=== PATIENT | male | born 1980 | race Two or more races ===

== ENCOUNTER 2019-03-25 22:51 | Emergency (ER) | payer SELFPAY ==
[2019-03-25 22:58] VITALS: O2SAT 99
--- NOTE | 2019-03-26 00:20 | ED PDOC ---
HPI: Psych/Substance Abuse Time Seen by Provider: 03/25/19 23:30 Chief Complaint (Nursing): Alcohol Ingestion Chief Complaint (Provider): Alcohol Ingestion ED Caveat: Intoxicated History Per: EMS History/Exam Limitations: intoxication Associated Symptoms: Anger, Agitation Additional Complaint(s): 39 years old male brought in by EMS and PD for alcohol intoxication and aggressive behavior. In the ER, patient is very uncooperative, not understanding directions and admitting to being intoxicated. Unable to provide reliable history from patient. PMD: None provided Past Medical History Reviewed: Historical Data, Nursing Documentation, Vital Signs Vital Signs: Last Vital Signs Temp 98.9 F 03/25/19 22:55 Pulse 96 H 03/25/19 22:55 Resp 17 03/25/19 22:55 BP 137/89 03/25/19 22:55 Pulse Ox 99 03/25/19 22:55 Primary Care Provider: FAMILY PROVIDER,NO - Medical History Other PMH: Unknown - Family History Family History: States: Unknown Family Hx - Social History Alcohol: Social - Allergies Allergies/Adverse Reactions: Allergies Allergy/AdvReac Type Severity Reaction Status Date / Time No Known Allergies Allergy Verified 03/25/19 22:58 Review of Systems Review Of Systems: ROS cannot be obtained secondary to pt's inabilty to answer questions. Physical Exam - Reviewed Nursing Documentation Reviewed: Yes Vital Signs Reviewed: Yes - Physical Exam Appears: Positive for: No Acute Distress (Agitated and angry) Head Exam: Positive for: ATRAUMATIC, NORMOCEPHALIC Skin: Positive for: Warm, Dry Eye Exam: Positive for: Conjunctival injection Neck: Positive for: Painless ROM, Supple Cardiovascular/Chest: Positive for: Regular Rate, Rhythm. Negative for: Murmur Respiratory: Positive for: Normal Breath Sounds. Negative for: Respiratory Distress Gastrointestinal/Abdominal: Positive for: Soft. Negative for: Tenderness Back: Positive for: Normal Inspection. Negative for: Decreased ROM Extremity: Positive for: Normal ROM. Negative for: Deformity Lymphatic: Negative for: Adenopathy Neurological/Psych: Positive for: Gait (Unsteady), Other (Slurred speech). Negative for: Motor/Sensory Deficits - ECG O2 Sat by Pulse Oximetry: 99 (RA) Pulse Ox Interpretation: Normal Medical Decision Making Medical Decision Making: Time: 2330 Initial impression: alcohol intoxication Initial plan: --On arrival, patient extremely agitated, unable to redirect and trying to ambulate despite unsteady gait --Required short term restrain for patient's safety [address] Carlos, pending sobriety. ---- Scribe Attestation: Documented by Kortney Black, acting as a scribe for Gwen Izaguirre MD. Provider Scribe Attestation: All medical record entries made by the Scribe were at my direction and personally dictated by me. I have reviewed the chart and agree that the record accurately reflects my personal performance of the history, physical exam, medical decision making, and the department course for this patient. I have also personally directed, reviewed, and agree with the discharge instructions and disposition. Disposition - Clinical Impression Clinical Impression: Alcohol abuse with intoxication - Patient ED Disposition Is Patient to be Admitted: Transfer of Care - Disposition Disposition: Transfer of Care Disposition Time: 00:16 Condition: STABLE Instructions: Alcohol Abuse and Alcoholism (DC) Forms: [employer] (Ukrainian) Patient Signed Over To: Tirso Carlos (pending sobriety)
--- NOTE | 2019-03-26 01:02 | ED PDOC ---
- ECG O2 Sat by Pulse Oximetry: 99 (RA) Pulse Ox Interpretation: Normal Medical Decision Making Medical Decision Makin Patient endorsed by Dr. Izaguirre, pending sobriety. 0103 Patient is clinically sober, stable for discharge. Scribe Attestation: Documented by Kortney Black, acting as a scribe for Tirso Carlos MD. Provider Scribe Attestation: All medical record entries made by the Scribe were at my direction and personally dictated by me. I have reviewed the chart and agree that the record accurately reflects my personal performance of the history, physical exam, m edical decision making, and the department course for this patient. I have also personally directed, reviewed, and agree with the discharge instructions and disposition. Disposition - Clinical Impression Clinical Impression: Alcohol abuse with intoxication - POA Present On Arrival: None - Disposition Disposition: Routine/Home Disposition Time: 01:03 Condition: STABLE Instructions: Alcohol Abuse and Alcoholism (DC) Forms: [employer] (Russian)
[2019-03-26 02:15] VITALS: BP 128/84; PULSE 87; RESP 18; TEMP 98.7
== END 2019-03-26 01:15 | disposition home or self-care (01) ==
LOC: EDBD 22:51 → H.ER 22:51
DX: F10.129 Alcohol abuse with intoxication, unspecified (principal); Y90.6 Blood alcohol level of 120-199 mg/100 ml
CPT/HCPCS: 82948; 99284; G0480